=== PATIENT | male | born 1990 | race Caucasian/White ===

== ENCOUNTER 2020-01-12 07:35 | Inpatient (IN) | payer MEDICAID ==
[~2020-01-12] VITALS: Ht 167.6 cm; Wt 70.8 kg
[2020-01-12] MEDS ORDERED: LORazepam 1 MG TABLET PO ONE (08:45)
[2020-01-12 08:50] LABS: BASOPHILS % (AUTO) 0.3 % (0.0-2.0); EOSINOPHILS % (AUTO) 0.3 % (1.0-6.0); HEMATOCRIT 38.2 % (41-53); LYMPHOCYTES # (AUTO) 1.4 K/uL (1.0-4.8); LYMPHOCYTES % (AUTO) 13.3 % (22.0-44.0); MEAN CORPUSCULAR HEMOGLOBIN 33.1 pg (26.0-34.0); MEAN CORPUSCULAR VOLUME 97 fL (80-100); MONOCYTES # (AUTO) 0.3 K/uL (0.1-1.0); MONOCYTES % (AUTO) 3.1 % (2.0-9.0); NEUTROPHILS # (AUTO) 8.5 K/uL (1.8-7.7); PLATELET COUNT (AUTO) 431 K/uL (150-450); RED BLOOD CELL COUNT(AUTO) 3.92 MIL/uL (4.50-5.90); RED CELL DISTRIBUTION WIDTH 12.3 % (11.5-14.5)
[2020-01-12 08:52] LABS: AMPHET/METH SCREEN,URINE POSITIVE (NEGATIVE); BARBITURATE SCREEN, URINE NEGATIVE (NEGATIVE); BENZODIAZEPINES SCREEN,URINE NEGATIVE (NEGATIVE); CANNABINOID SCREEN,URINE NEGATIVE (NEGATIVE); COCAINE SCREEN,URINE NEGATIVE (NEGATIVE); METHADONE SCREEN, URINE NEGATIVE (NEGATIVE); OPIATE SCREEN,URINE NEGATIVE (NEGATIVE)
[2020-01-12 08:53] LABS: PHENCYCLIDINE SCREEN,URINE NEGATIVE (NEGATIVE)
[2020-01-12 09:02] LABS: ANION GAP 6 mmol/L (8-16); CALCIUM, TOTAL 8.8 mg/dL (8.8-10.5); CARBON DIOXIDE 29 mmol/L (22-29); CHLORIDE 102 mmol/L (98-107); CREATININE 1.08 mg/dL (0.60-1.30); GLOMERULAR FILTR. RATE CALC > 60 mL/min (>60); GLUCOSE,RANDOM 113 mg/dL (70-110); POTASSIUM 3.6 mmol/L (3.5-5.1); SODIUM SERUM 137 mmol/L (136-145); UREA NITROGEN, BLOOD 10 mg/dL (7-18)
[2020-01-12 09:08] LABS: ALANINE AMINOTRANSFERASE 71 U/L (12-78); ALBUMIN 3.6 g/dL (3.4-5.0); ALKALINE PHOSPHATASE 60 U/L (46-116); ASPARTATE AMINOTRANSFERASE 33 U/L (15-37); BILIRUBIN,TOTAL 0.5 mg/dL (0.1-1.0)
[2020-01-12] MEDS ORDERED: ACETAMINOPHEN 500 MG TABLET PO ONE (13:30)
[2020-01-12] MEDS: OLANZapine 5 MG TABLET PO SCH (13:36)
[2020-01-12] MEDS ORDERED: OLANZapine 5 MG TABLET PO SCH (21:00)
[2020-01-12 21:32] VITALS: BP 128/79
[2020-01-13 00:03] VITALS: BP 100/62
[2020-01-13 08:09] VITALS: BP 106/66
[2020-01-13] MEDS: OLANZapine 5 MG TABLET PO SCH ×2 (08:22→16:08)
[2020-01-13] MEDS: NICOTINE 14 MG/24 HOUR PATCH TD SCH (08:22)
[2020-01-13] MEDS ORDERED: LOPERAMIDE HCL 2 MG CAPSULE PO PRN (08:30)
[2020-01-13] MEDS ORDERED: MAGNESIUM HYDROXIDE SUSPENSION 30 ML UDCUP PO PRN (08:30)
[2020-01-13] MEDS ORDERED: CloNIDine HCL 0.1 MG TABLET PO PRN (08:30)
[2020-01-13] MEDS ORDERED: MAG HYDROX/AL HYDROX/SIMETH ES 30 ML SUSPENSION UDCUP PO PRN (08:30)
[2020-01-13] MEDS ORDERED: BACITRACIN 28.4 GM OINTMENT TP PRN (08:30)
[2020-01-13] MEDS ORDERED: PETROLATUM,WHITE 28 GM JELLY TP PRN (08:30)
[2020-01-13] MEDS ORDERED: ALBUTEROL SULFATE HFA 90 MCG/PUFF 8 GM INHALER IH PRN (08:30)
[2020-01-13] MEDS ORDERED: BENZOCAINE/MENTHOL LOZENGE PO PRN (08:30)
[2020-01-13] MEDS ORDERED: ONDANSETRON HCL 4 MG TABLET PO PRN (08:30)
[2020-01-13] MEDS ORDERED: DOCUSATE SODIUM 100 MG CAPSULE PO PRN (08:30)
[2020-01-13] MEDS ORDERED: OMEPRAZOLE 20 MG CAPSULE PO PRN (08:30)
[2020-01-13] MEDS ORDERED: IBUPROFEN 600 MG TABLET PO PRN (08:30)
[2020-01-13] MEDS: BusPIRone HCL 10 MG TABLET PO SCH ×2 (12:56→16:08)
[2020-01-13 16:26] VITALS: BP 115/63
[2020-01-14 06:17] VITALS: BP 118/70
[2020-01-14] MEDS: BusPIRone HCL 10 MG TABLET PO SCH ×3 (08:23→17:00)
[2020-01-14] MEDS: OLANZapine 5 MG TABLET PO SCH ×2 (08:23→15:52)
[2020-01-14] MEDS: BuPROPion HCL XL 150 MG ER TABLET PO SCH (08:23)
[2020-01-14 08:27] VITALS: BP 123/61
[2020-01-14] MEDS: NICOTINE 14 MG/24 HOUR PATCH TD SCH (09:18)
[2020-01-14] MEDS: ACETAMINOPHEN 325 MG TABLET PO PRN (15:52)
[2020-01-14 16:07] VITALS: BP 112/62
[2020-01-15 06:24] VITALS: BP 114/69
[2020-01-15 08:15] VITALS: BP 124/68
[2020-01-15] MEDS: BusPIRone HCL 10 MG TABLET PO SCH ×3 (08:41→16:18)
[2020-01-15] MEDS: NICOTINE 14 MG/24 HOUR PATCH TD SCH (08:41)
[2020-01-15] MEDS: OLANZapine 5 MG TABLET PO SCH ×2 (08:41→16:18)
[2020-01-15] MEDS: BuPROPion HCL XL 150 MG ER TABLET PO SCH (08:41)
[2020-01-15 08:56] VITALS: BP 124/68
[2020-01-15] MEDS: ACETAMINOPHEN 325 MG TABLET PO PRN ×3 (08:56→16:24)
[2020-01-15 16:07] VITALS: BP 123/75
[2020-01-15 16:24] VITALS: BP 123/75
[2020-01-15] MEDS: HALOPERIDOL 5 MG TABLET PO PRN (16:24)
[2020-01-15] MEDS: QUEtiapine FUMARATE 200 MG TABLET PO SCH (20:20)
[2020-01-15] MEDS: ZOLPIDEM TARTRATE 10 MG TABLET PO PRN (20:41)
[2020-01-16 05:06] VITALS: BP 113/61
[2020-01-16 08:03] VITALS: BP 117/65
[2020-01-16] MEDS: OLANZapine 5 MG TABLET PO SCH ×2 (08:27→16:11)
[2020-01-16] MEDS: NICOTINE 14 MG/24 HOUR PATCH TD SCH (08:27)
[2020-01-16] MEDS: BusPIRone HCL 10 MG TABLET PO SCH ×3 (08:27→16:11)
[2020-01-16] MEDS: BuPROPion HCL XL 150 MG ER TABLET PO SCH (08:27)
[2020-01-16] MEDS: HALOPERIDOL 5 MG TABLET PO PRN (12:10)
[2020-01-16] MEDS: ACETAMINOPHEN 325 MG TABLET PO PRN (12:11)
[2020-01-16 16:13] VITALS: BP 118/69
[2020-01-16] MEDS: QUEtiapine FUMARATE 200 MG TABLET PO SCH (20:07)
[2020-01-17 05:32] VITALS: BP 114/63
[2020-01-17] MEDS: NICOTINE 14 MG/24 HOUR PATCH TD SCH (08:31)
[2020-01-17] MEDS: OLANZapine 5 MG TABLET PO SCH ×2 (08:31→16:17)
[2020-01-17] MEDS: BuPROPion HCL XL 150 MG ER TABLET PO SCH (08:31)
[2020-01-17] MEDS: BusPIRone HCL 10 MG TABLET PO SCH ×3 (08:31→16:17)
[2020-01-17 08:54] VITALS: BP 107/63
[2020-01-17] MEDS: HALOPERIDOL 5 MG TABLET PO PRN (12:34)
[2020-01-17] MEDS: ACETAMINOPHEN 325 MG TABLET PO PRN (12:35)
[2020-01-17 16:25] VITALS: BP 109/66
[2020-01-17] MEDS: QUEtiapine FUMARATE 200 MG TABLET PO SCH (20:13)
[2020-01-18 06:08] VITALS: BP 99/80
[2020-01-18] MEDS: BusPIRone HCL 10 MG TABLET PO SCH ×3 (08:30→16:03)
[2020-01-18] MEDS: OLANZapine 5 MG TABLET PO SCH ×2 (08:30→16:03)
[2020-01-18] MEDS: NICOTINE 14 MG/24 HOUR PATCH TD SCH (08:30)
[2020-01-18] MEDS: BuPROPion HCL XL 150 MG ER TABLET PO SCH (08:30)
[2020-01-18 08:43] VITALS: BP 129/88
[2020-01-18] MEDS: ACETAMINOPHEN 325 MG TABLET PO PRN (13:29)
[2020-01-18] MEDS: HALOPERIDOL 5 MG TABLET PO PRN (13:29)
[2020-01-18 16:02] VITALS: BP 130/70
[2020-01-18] MEDS: QUEtiapine FUMARATE 200 MG TABLET PO SCH (20:40)
[2020-01-19 01:43] VITALS: BP 122/76
[2020-01-19] MEDS: NICOTINE 14 MG/24 HOUR PATCH TD SCH (08:08)
[2020-01-19] MEDS: OLANZapine 5 MG TABLET PO SCH ×2 (08:08→16:38)
[2020-01-19] MEDS: BusPIRone HCL 10 MG TABLET PO SCH ×3 (08:08→16:38)
[2020-01-19] MEDS: BuPROPion HCL XL 150 MG ER TABLET PO SCH (08:08)
[2020-01-19] MEDS: ACETAMINOPHEN 325 MG TABLET PO PRN ×2 (08:11→16:38)
[2020-01-19 09:00] VITALS: BP 128/67
[2020-01-19] MEDS: HALOPERIDOL 5 MG TABLET PO PRN (13:47)
[2020-01-19 16:18] VITALS: BP 113/65
[2020-01-19] MEDS: ClonazePAM 0.5 MG TABLET PO SCH (16:38)
[2020-01-19] MEDS: QUEtiapine FUMARATE 200 MG TABLET PO SCH (20:31)
[2020-01-19] MEDS: ZOLPIDEM TARTRATE 10 MG TABLET PO PRN (22:06)
[2020-01-20 05:24] VITALS: BP 118/63
[2020-01-20 08:04] VITALS: BP 117/81
[2020-01-20] MEDS: BusPIRone HCL 10 MG TABLET PO SCH ×3 (08:12→16:15)
[2020-01-20] MEDS: BuPROPion HCL XL 150 MG ER TABLET PO SCH (08:12)
[2020-01-20] MEDS: OLANZapine 5 MG TABLET PO SCH ×2 (08:12→16:15)
[2020-01-20] MEDS: ClonazePAM 0.5 MG TABLET PO SCH ×2 (08:12→16:15)
[2020-01-20] MEDS: NICOTINE 14 MG/24 HOUR PATCH TD SCH (08:12)
[2020-01-20] MEDS: ACETAMINOPHEN 325 MG TABLET PO PRN (12:33)
[2020-01-20 16:08] VITALS: BP 121/67
[2020-01-20] MEDS: QUEtiapine FUMARATE 200 MG TABLET PO SCH (20:08)
[2020-01-21 01:53] VITALS: BP 122/71
[2020-01-21 09:02] VITALS: BP 143/98
[2020-01-21] MEDS: ClonazePAM 0.5 MG TABLET PO SCH ×2 (09:20→16:15)
[2020-01-21] MEDS: HALOPERIDOL 5 MG TABLET PO PRN (09:20)
[2020-01-21] MEDS: ACETAMINOPHEN 325 MG TABLET PO PRN (09:20)
[2020-01-21] MEDS: NICOTINE 14 MG/24 HOUR PATCH TD SCH (09:20)
[2020-01-21] MEDS: OLANZapine 5 MG TABLET PO SCH ×2 (09:20→16:15)
[2020-01-21] MEDS: BusPIRone HCL 10 MG TABLET PO SCH ×3 (09:21→16:19)
[2020-01-21] MEDS: BuPROPion HCL XL 150 MG ER TABLET PO SCH (09:21)
[2020-01-21 16:02] VITALS: BP 120/72
[2020-01-21] MEDS: QUEtiapine FUMARATE 200 MG TABLET PO SCH (20:14)
[2020-01-22 04:33] VITALS: BP 122/65
[2020-01-22 05:55] VITALS: BP 122/65
[2020-01-22] MEDS: ACETAMINOPHEN 325 MG TABLET PO PRN ×2 (06:00→12:17)
[2020-01-22 08:20] VITALS: BP 119/74
[2020-01-22] MEDS: OLANZapine 5 MG TABLET PO SCH ×2 (08:29→16:41)
[2020-01-22] MEDS: ClonazePAM 0.5 MG TABLET PO SCH ×2 (08:29→16:40)
[2020-01-22] MEDS: BuPROPion HCL XL 150 MG ER TABLET PO SCH (08:29)
[2020-01-22] MEDS: NICOTINE 14 MG/24 HOUR PATCH TD SCH (08:30)
[2020-01-22] MEDS: BusPIRone HCL 10 MG TABLET PO SCH ×3 (09:11→16:40)
[2020-01-22] MEDS: HALOPERIDOL 5 MG TABLET PO PRN (10:39)
[2020-01-22 17:13] VITALS: BP 121/66
[2020-01-22] MEDS: QUEtiapine FUMARATE 200 MG TABLET PO SCH (20:10)
[2020-01-23 00:52] VITALS: BP 104/65
[2020-01-23] MEDS: BuPROPion HCL XL 150 MG ER TABLET PO SCH (08:13)
[2020-01-23] MEDS: ClonazePAM 0.5 MG TABLET PO SCH ×2 (08:13→17:00)
[2020-01-23] MEDS: BusPIRone HCL 10 MG TABLET PO SCH ×3 (08:13→16:57)
[2020-01-23] MEDS: NICOTINE 14 MG/24 HOUR PATCH TD SCH (08:13)
[2020-01-23] MEDS: ACETAMINOPHEN 325 MG TABLET PO PRN ×2 (08:13→17:20)
[2020-01-23] MEDS: OLANZapine 5 MG TABLET PO SCH ×2 (08:13→16:57)
[2020-01-23 08:23] VITALS: BP 125/78
[2020-01-23] MEDS: HALOPERIDOL 5 MG TABLET PO PRN (12:56)
[2020-01-23 16:01] VITALS: BP 133/81
[2020-01-23] MEDS: QUEtiapine FUMARATE 200 MG TABLET PO SCH (20:16)
[2020-01-24 04:11] VITALS: BP 121/78
[2020-01-24 08:14] VITALS: BP 108/67
[2020-01-24] MEDS: BuPROPion HCL XL 150 MG ER TABLET PO SCH (08:18)
[2020-01-24] MEDS: ClonazePAM 0.5 MG TABLET PO SCH (08:18)
[2020-01-24] MEDS: BusPIRone HCL 10 MG TABLET PO SCH ×3 (08:18→16:04)
[2020-01-24] MEDS: NICOTINE 14 MG/24 HOUR PATCH TD SCH (08:18)
[2020-01-24] MEDS: OLANZapine 5 MG TABLET PO SCH ×2 (08:18→16:04)
[2020-01-24] MEDS: LORazepam 2 MG TABLET PO PRN ×2 (14:27→19:58)
[2020-01-24 16:29] VITALS: BP 132/60
[2020-01-24] MEDS: QUEtiapine FUMARATE 200 MG TABLET PO SCH (21:04)
[2020-01-25 00:02] VITALS: BP 125/72
[2020-01-25] MEDS: ZOLPIDEM TARTRATE 10 MG TABLET PO PRN (00:40)
[2020-01-25] MEDS: LORazepam 2 MG TABLET PO PRN ×3 (00:41→14:05)
[2020-01-25 07:01] VITALS: BP 121/74
[2020-01-25 08:24] LABS: HEMOGLOBIN A1C 4.6 % (3.8-5.6)
[2020-01-25 08:31] LABS: CHOL/HDL RATIO 3.3 (4.2-7.3); FREE T4 (FREE THYROXINE) 1.22 ng/dL (0.76-1.46); THYROID STIMULATING HORMONE 1.08 uIU/mL (0.36-3.74)
[2020-01-25] MEDS: BuPROPion HCL XL 150 MG ER TABLET PO SCH (08:39)
[2020-01-25] MEDS: OLANZapine 5 MG TABLET PO SCH ×2 (08:39→16:07)
[2020-01-25] MEDS: BusPIRone HCL 15 MG TABLET PO SCH ×3 (08:39→16:07)
[2020-01-25] MEDS: NICOTINE 14 MG/24 HOUR PATCH TD SCH (08:40)
[2020-01-25 08:46] VITALS: BP 120/77
[2020-01-25] MEDS ORDERED: BUSP15 PO (16:38)
[2020-01-25] MEDS ORDERED: BUPR-93 PO (16:38)
[2020-01-25] MEDS ORDERED: OLAN5TAB2 PO (16:38)
[2020-01-25] MEDS ORDERED: QUET200T PO (16:38)
== END 2020-01-25 17:20 | disposition home or self-care (01) | DRG 754 ==
LOC: EMS 07:36 → B2S 19:00
PROVIDERS: ADMIT Psychiatry & Neurology Psychiatry; ATTEND Psychiatry & Neurology Psychiatry
DX: F32.9 Major depressive disorder, single episode, unspecified (principal); F41.9 Anxiety disorder, unspecified; F15.10 Other stimulant abuse, uncomplicated; R45.851 Suicidal ideations; Z87.891 Personal history of nicotine dependence; Z59.0 Homelessness; Z63.8 Other specified problems related to primary support group
CPT/HCPCS: 83036; 84439; 84443; G0480